=== PATIENT | male | born 1980 | race Caucasian/White ===

== ENCOUNTER 2017-05-10 03:19 | Emergency (ER) | payer SELFPAY ==
[~2017-05-10] VITALS: Ht 172.7 cm; Wt 79.4 kg
[2017-05-10 03:19] VITALS: BP_SYST 164
[2017-05-10 03:40] VITALS: BP_SYST 156
== END 2017-05-10 03:40 ==
LOC: SED 03:19
DX: Z04.1 Encounter for examination and observation following transport accident (principal); F10.10 Alcohol abuse, uncomplicated; F17.200 Nicotine dependence, unspecified, uncomplicated; V89.2XXA Person injured in unspecified motor-vehicle accident, traffic, initial encounter; Y93.89 Activity, other specified; Y92.410 Unspecified street and highway as the place of occurrence of the external cause; Y99.8 Other external cause status
CPT/HCPCS: 99283